=== PATIENT | female | born 1985 | race Caucasian/White ===

== ENCOUNTER 2020-09-25 12:10 | Emergency (ER) | payer BC ==
[~2020-09-25 12:10] MED LIST: Iopamidol-370 76% 500 ML 1 ML ONE
[2020-09-25] MEDS ORDERED: Ketorolac Tromethamine 30 MG/ML VIAL ONE (13:04)
[2020-09-25 13:33] LABS: #Basophils 0.1 thou/uL (0.0-0.2); #Eosinphils 0.2 thou/uL (0.0-0.7); #Lymphocytes 3.8 thou/uL (1.20-3.40); #Monocytes 0.7 thou/uL (0.11-0.59); #Neutrophils 5.4 thou/uL (1.40-6.50); %Basophils 0.8 % (0.0-1.0); %Eosinophils 1.9 % (0.0-10.0); %Lymphocytes 37.2 % (21.0-51.0); %Monocytes 6.4 % (0.0-10.0); %Neutrophils 53.6 % (42.0-75.0); Mean Corpuscular HGB CONC 33.2 g/dL (32.0-36.0); Mean Corpuscular Volume 87.5 fL (78.0-98.0); Mean Platelet Volume 8.1 fL (7.4-10.4); Platelet Count 317 thou/uL (130-400); RBC Distribution Width 11.8 % (11.5-14.5); Red Blood Cell (RBC) Count 4.13 mill/uL (4.20-5.40); White Blood Cell (WBC) Count 10.1 thou/uL (4.8-10.8)
[2020-09-25 13:48] LABS: INR-International Normal Ratio 0.9; PTT 26.8 sec (22.9-36.1); Prothrombin Time 12.4 sec (12.0-14.7)
[2020-09-25 13:59] LABS: ALT (SGPT) 14 U/L (8-55); AST (SGOT) 16 U/L (5-34); Albumin 4.1 g/dL (3.5-5.0); Alkaline Phosphatase 114 U/L (40-110); Anion Gap 15 mmol/L (10-20); BUN (Urea Nitrogen) 10 mg/dL (7.0-18.7); Bilirubin, Total 0.2 mg/dL (0.2-1.2); Calc. Creatinine Clearance 0 mL/min (70-130); Calcium 8.9 mg/dL (7.8-10.44); Carbon Dioxide 26 mmol/L (22-29); Chloride 105 mmol/L (98-107); Globulin 3.2 g/dL (2.4-3.5); Glucose 86 mg/dL (70-105); Potassium 3.8 mmol/L (3.5-5.1); Protein, Total 7.3 g/dL (6.0-8.3); Sodium 142 mmol/L (136-145)
[2020-09-25] MEDS ORDERED: Ondansetron PF 4 MG/2 ML Vial ONE (14:05)
--- NOTE | 2020-09-25 15:02 | CT ---
CT ABDOMEN AND PELVIS WITH IV CONTRAST 09/25/2020 CLINICAL INFORMATION: 3 week history of progressively worsening pelvic pain and swelling with associated vaginal bleeding a nd abnormal discharge. Bruising in the region of the vulva and suprapubic location. COMPARISON: None. Technique: Multiple contiguous axial CT images are obtained through the abdomen and pelvis with IV contrast. Cor onal reformatted images are provided. FINDINGS: Lower Chest: Lung bases are clear. Vessels: Abdominal aorta is normal in caliber. Evidence of circumaortic left renal vein. Abdomen: Portal vein:Patent Gallbladder: Evidence of cholecystectomy. Liver: within normal limits. Spleen: within normal limits. Pancreas: within normal limits. Adrenals: within normal limits. Kidneys: within normal limits. Bowel: Normal caliber. Appendix: The appendix is visualized and normal in caliber. Peritoneum: No ascites or free air; no fluid collection. Mesentery and Retroperitoneum: No enlarged mesenteric or retroperitoneal lymph nodes. Abdominal Wall: No subcutaneous edema is seen at the level of the lower pelvis. Jewelry involving the external genitalia. Pelvis: Reproductive Organs: Uterus and adnexal structures have a normal CT appearance. No fluid or fluid col lection is seen in the pelvis. Bladder: within normal limits. Bones: No suspicious lytic or sclerotic osseous lesions. IMPRESSION: No acute findings in the abdomen or pelvis.
== END 2020-09-25 16:18 | disposition home or self-care (01) ==
LOC: ERS 12:10
DX: S30.1XXA Contusion of abdominal wall, initial encounter (principal); N93.9 Abnormal uterine and vaginal bleeding, unspecified; N76.89 Other specified inflammation of vagina and vulva; Z87.891 Personal history of nicotine dependence
CPT/HCPCS: 36415; 74177; 80053; 84702; 85025; 85610; 85730; 96374; 96375; J1885; J2405; Q9967